=== PATIENT | female | born 1970 | race Caucasian/White ===

== ENCOUNTER 2021-02-05 09:11 | Day surgery (SDC) | payer OTHER ==
[~2021-02-05] VITALS: Ht 154.9 cm; Wt 68.0 kg
[2021-02-05] MEDS ORDERED: fentaNYL citrate 0.05 MG/ML VIAL ONE (11:00)
[2021-02-05] MEDS ORDERED: LIDOCAINE 2% 100 MG/5 ML UJET TP ONE (11:00)
[2021-02-05] MEDS ORDERED: fentaNYL citrate 0.05 MG/ML VIAL IVP ONE (12:40)
== END 2021-02-05 12:50 | disposition home or self-care (01) ==
LOC: MDS 09:11 → MMU 09:11 → MDS 12:50
PROVIDERS: ATTEND Internal Medicine Gastroenterology
DX: Z12.11 Encounter for screening for malignant neoplasm of colon (principal); K63.5 Polyp of colon; Z79.899 Other long term (current) drug therapy
CPT/HCPCS: 45385; J3010